=== PATIENT | male | born 1930 | race Caucasian/White ===

== ENCOUNTER 2022-10-01 19:32 | Inpatient (IN) ==
[2022-10-01] MEDS ORDERED: HYDROmorphone 1 MG/ML SYRINGE IV PRN (23:09)
[2022-10-01] MEDS ORDERED: oxyCODONE/APAP 5/325MG TABLET PO PRN (23:09)
[2022-10-01] MEDS ORDERED: TEMAZEPAM 15 MG CAPSULE PO PRN (23:14)
[2022-10-01] MEDS ORDERED: ONDANSETRON 4 MG/2 ML VIAL IV PRN (23:14)
[2022-10-01] MEDS ORDERED: METHOCARBAMOL 1,000 MG/10 ML VIAL IV PRN (23:14)
[2022-10-01] MEDS ORDERED: LACTATED RINGERS 1,000 ML IV SCH (23:15)
[2022-10-01] MEDS ORDERED: ceFAZolin 2 GM in DEXTROSE 5% IN WATER 50 ML IV SCH (23:15)
[2022-10-02 04:40] LABS: Appearance,Urine CLEAR (Clear); Bacteria,Urine MOD /hpf (0); Bilirubin,Urine NEGATIVE (Negative); Color,Urine LT. YELLOW; Culture Indicated,Urine yes; Glucose,Urine (UA) NEGATIVE (Negative); Ketones,Urine TRACE mg/dL (Negative); Leukocyte Esterase,Urine LARGE /uL (Negative); Mucus,Urine FEW /hpf; Nitrate,Urine Positive (Negative); Protein,Urine TRACE mg/dL (Negative); Urine Blood TRACE-INTACT ery/mcL (Negative); Urine RBC 2 /hpf (0-3); Urine Squamous Epithelial Cell < 1 /hpf (0-4); Urine WBC > 182 /hpf (0-4); Urobilinogen,Urine Normal
[2022-10-02] MEDS ORDERED: IPRATROPIUM/ALBUTEROL 3 ML AMPUL.NEB NEB PRN ×2 (06:00→22:21)
[2022-10-02] MEDS ORDERED: SCOPOLAMINE 1 PATCH PATCH TOPICAL PRN (06:00)
[2022-10-02 07:17] LABS: Basophils # (Auto) 0.01 K/mcL (0.00-0.30); Basophils % (Auto) 0.3 % (0.0-2.0); Eosinophils # (Auto) 0.04 K/mcL (0.00-0.70); Eosinophils % (Auto) 1.1 % (0.0-7.0); Hematocrit 22.9 % (40.1-51.0); Hemoglobin 7.5 g/dL (13.7-17.5); Lymphocytes # (Auto) 0.42 K/mcL (1.50-4.80); Lymphocytes % (Auto) 11.7 % (15.5-49.0); Mean Cell Volume 86.7 fL (80.0-100.0); Mean Corpuscular HGB Conc 32.8 g/dL (31.0-36.0); Mean Platelet Volume 10.3 fL (8.8-12.5); Monocytes # (Auto) 0.39 K/mcL (0.10-0.90); Monocytes % (Auto) 10.9 % (1.0-12.0); Neutrophils % (Auto) 75.2 % (38.0-78.0); Platelet Count 210 K/mcL (140-440); RBC 2.64 M/mcL (4.63-6.08); Red Cell Distribution Width 15.1 % (11.5-14.5); WBC 3.6 K/mcL (4.5-11.0)
[2022-10-02 07:34] LABS: INR 1.2 (0.9-1.1); Partial Thromboplastin Time 32.9 sec (20.0-37.0); Prothrombin Time 15.6 sec (11.9-14.5)
--- NOTE | 2022-10-02 07:55 | Consultation ---
DATE OF CONSULTATION: 10/01/2022 DATE OF CONSULTATION: 10/01/2022 CHIEF COMPLAINT: Left hip fracture. HISTORY OF PRESENT ILLNESS: An 89-year-old with history of a left hip fracture, transferred from [facility] where he had a same level fall, had immediate pain, swelling, and deformity. X-rays confirmed an intertrochanteric hip fracture. He is independently living with his at home. PAST MEDICAL HISTORY: Otherwise, fairly healthy. ALLERGIES: None. MEDICATIONS: His medication lists no regular medications. SOCIAL HISTORY: Lives with his at home. PHYSICAL EXAMINATION: VITAL SIGNS: 5'8", 132 pounds, blood pressure 139/60, pulse 73, respiratory rate 16, temperature 97.5, oxygen saturation on room air 100%. GENERAL: He is thin and frail. LUNGS: Clear to auscultation. CARDIOVASCULAR: Slightly tachycardic at 90, regular rate and rhythm. EXTREMITIES: His left leg is shortened and externally rotated. He can move his toes. He does not have substantial pain, rating his pain about 6/10. IMAGING: X-rays of the left hip from [facility] demonstrate an intertrochanteric hip fracture, displaced. IMPRESSION: Intertrochanteric hip fracture. PLAN: Treatment will be open reduction and internal fixation with a gamma nail. This will be scheduled for tomorrow. Tonight, he can drink apple juice or clear fluids. As of 8 o'clock in the morning, he will be made complete n.p.o., but no food or solid foods from now until surgery. RBH:corinne Job ID: [id number] Doc ID: [id number] Peña Barragan MD
[2022-10-02 08:02] LABS: ALT/SGPT 7 U/L (<40); AST/SGOT 14 U/L (<40); Albumin 2.6 gm/dL (3.2-5.2); Albumin/Globulin Ratio 0.9 (1.0-2.3); Alkaline Phosphatase 77 U/L (39-117); Bilirubin,Total 0.4 mg/dL (0.1-1.0); Blood Urea Nitrogen 29 mg/dL (8-23); Calcium 7.7 mg/dL (8.6-10.4); Carbon Dioxide 18 mmol/L (22-30); Chloride 101 mmol/L (96-108); Globulin 2.8 gm/dL (2.2-3.7); Glomerular Filtration Rate 48; Glucose 98 mg/dL (70-105)
[2022-10-02] MEDS: DOCUSATE SODIUM 100 MG CAPSULE PO SCH (08:14)
--- NOTE | 2022-10-02 10:44 | EKG ---
[facility] Test Date: 2022-10-02 Pat Name: SHARLA Ireland Department: MED[facility] Room: 114 Gender: Male Custody Assistant: : [id number] Requested By: Lb Ruvalcaba Order Number: [id number] Reading MD: Lynn Ruby D.O. Measurements Intervals [place] Rate: 79 P: 93 AL: 164 QRS: 43 QRSD: 77 T: 63 QT: 382 QTc: 439 Interpretive Statements Sinus rhythm Electronically Signed On 10-02-2022 10:44:02 PST by Lynn Ruby D.O. /store/M0/[id number]
[2022-10-02] MEDS ORDERED: 0.9 % SODIUM CHLORIDE 250 ML IV SCH ×2 (14:30→16:11)
--- NOTE | 2022-10-02 16:13 | Internal Medicine Consult Note ---
HPI Date of Consult Consult Date: 10/02/22 Primary Care Provider: Mi Donovan Consult Narrative Patient Information: Note initiated : 10/02/22 at 4:03 pm Service Date, if different from initiated Date: [] Patient: Pola Ireland 89 y/o M admitted on 10/01/22 for Left Femur Fracure . Chief Complaint: [] Reason for consult: Hyponatremia cc:: CC: Peña Barragan Patient presents to [facility] after a fall onto his left hip resulting immediate pain. Patient was walking to the mailbox late morning when he slipped on ice. Patient initially brought back in a home with by friends but over period of time he still was unable to get up at that time presented to the ED. patient denies any recent illnesses. Only known medical history is BPH. He does straight cath himself with his 3-4 times a day. His urine was also concerning for dehydration as well as urinary tract infection with nitrites leukocyte esterase and WBCs. He also had ketone positive. No labs were done at the outside facility, but the labs this morning showed a hemoglobin of 7.5, which I suspect is chronic given his age with probably a component of bleeding at the site of fracture and no other obvious source of active bleeding. Additionally his chemistry showed a sodium 127 which is probably has some chronic component, unknown baseline. Mild metabolic acidosis. With elevated BUN to creatinine ratio, 29/1.3 probably from dehydration, unknown baseline corrected calcium was within normal limits. Review of Systems: Pertinent positives as above. Denies headache/fever/chills/nausea/vomiting/chest or abdominal pain/cough/dyspnea/diarrhea. Remaining 10 point review of system reviewed negative PFSH PFSH Social History smoking status: Former smoker MEDS/ALLERGIES Home Medications and Allergies Home Medications Medication Instructions Recorded Confirmed Type No Known Home Meds 10/01/22 10/01/22 History Allergies Allergy/AdvReac Type Severity Reaction Status Date / Time No Known Allergies Allergy Verified 10/01/22 20:56 EXAM Constitutional Vitals: Temp Pulse Resp BP Pulse Ox O2 Del Method 97.9 F 82 16 110/53 100 10/02/22 11:40 10/02/22 11:40 10/02/22 11:40 10/02/22 11:40 10/02/22 11:40 10/02/22 11:40 Exam: General: Alert, Awake, No acute Distress Eyes/N/T: EOMI, PERRL, dry MM Head/Neck: neck supple, normocephalic atraumatic CV: RRR, No murmurs, normal s1/s2 Pulm: Clear b/l, no wheezing/rhonchi/rales Abd: soft, nontender, +BS x4 Ext: no clubbing/cyanosis/edema Neuro: Alert, no focal deficits, moves all extremities, sensations intact b/l upper/lower Skin: warm/dry DATA Data Completed and Pending Labs: Labs from last 24 hours 10/02/22 10/02/22 10/02/22 06:25 06:25 06:25 WBC 3.6 L RBC 2.64 L Hgb 7.5 L Hct 22.9 L MCV 86.7 MCH 28.4 MCHC 32.8 RDW 15.1 H Plt Count 210 MPV 10.3 Immature Gran % (Auto) 0.8 H Neut % (Auto) 75.2 Lymph % (Auto) 11.7 L [place] % (Auto) 10.9 Eos % (Auto) 1.1 Baso % (Auto) 0.3 Lymph # (Auto) 0.42 L [place] # (Auto) 0.39 Eos # (Auto) 0.04 Baso # (Auto) 0.01 Immature Gran # 0.03 Absolute Neutrophils 2.69 PT 15.6 H INR 1.2 H APTT 32.9 Sodium 127 L Potassium 3.8 Chloride 101 Carbon Dioxide 18 L Anion Gap 8.0 BUN 29 H Creatinine 1.3 H GFR Calculation 48 Glucose 98 Calcium 7.7 L Total Bilirubin 0.4 AST 14 ALT 7 Alkaline Phosphatase 77 Total Protein 5.4 L Albumin 2.6 L Globulin 2.8 Albumin/Globulin Ratio 0.9 L Urine Color Urine Appearance Urine pH Ur Specific [place] Urine Protein Urine Glucose (UA) Urine Ketones Urine Occult Blood Urine Nitrate Urine Bilirubin Urine Urobilinogen Ur Leukocyte Esterase Urine RBC Urine WBC Ur Squamous Epith Cells Urine Bacteria Urine Mucus Ur Culture Indicated? 10/02/22 03:47 WBC RBC Hgb Hct MCV MCH MCHC RDW Plt Count MPV Immature Gran % (Auto) Neut % (Auto) Lymph % (Auto) [place] % (Auto) Eos % (Auto) Baso % (Auto) Lymph # (Auto) [place] # (Auto) Eos # (Auto) Baso # (Auto) Immature Gran # Absolute Neutrophils PT INR APTT Sodium Potassium Chloride Carbon Dioxide Anion Gap BUN Creatinine GFR Calculation Glucose Calcium Total Bilirubin AST ALT Alkaline Phosphatase Total Protein Albumin Globulin Albumin/Globulin Ratio Urine Color Lt. yellow Urine Appearance Clear Urine pH 6.0 Ur Specific [place] 1.010 Urine Protein Trace A Urine Glucose (UA) Negative Urine Ketones Trace A Urine Occult Blood Trace-intact A Urine Nitrate Positive A Urine Bilirubin Negative Urine Urobilinogen Normal Ur Leukocyte Esterase Large A Urine RBC 2 Urine WBC > 182 H Ur Squamous Epith Cells < 1 Urine Bacteria Mod A Urine Mucus Few A Ur Culture Indicated? yes A/P Narrative A/P Narrative: A: *Left hip fracture: *Anemia, likely chronic with acute component from fracture: *Hyponatremia: Likely chronic unknown baseline with possible acute component from volume depletion - *Corrected calcium wnl *KATHY on likely CKD: 2/2 volume depletion *Metabolic acidosis: 2/2 above *Volume depletion: *UTI: *h/o BPH with UR: pt straight caths 3-4x's day at home *Protein calorie malnutrition: Fat and muscle loss P: -Dr. Bai for orthopedic surgery -IVF's -follow-up renal function, uop, i/o -Hyponatremia work-up, follow-up sodium after NS IVF pending urine studies -check tsh/cortisol -Pain control - -Rocephin pending UC -Dietary consult -PT/OT -CM for placement -ppx: SCD and postop per Ortho Time Spent With Patient Time: Total time spent is greater than 50% in coordination of care (as documented) at patient's floor/unit and/or counseling patient: Total time spent with greater than 50% in coordination of care (as documented) at patient's floor/unit and/or counseling patient:: Greater than 70 minutes
[2022-10-02] MEDS: 0.9 % SODIUM CHLORIDE 1,000 ML IV SCH (17:09)
[2022-10-02] MEDS: cefTRIAXone 1 GM VIAL IV SCH (17:09)
[2022-10-02 18:12] LABS: Thyroid Stimulating Hormone 4.31 uIU/mL (0.27-5.01)
[2022-10-02] MEDS ORDERED: TEMAZEPAM 15 MG CAPSULE PO PRN (20:26)
[2022-10-02] MEDS ORDERED: TRANEXAMIC ACID 1,000 MG/10 ML VIAL IV ONE (20:26)
[2022-10-02] MEDS ORDERED: ONDANSETRON 4 MG/2 ML VIAL IV PRN (20:26)
[2022-10-02] MEDS ORDERED: ACETAMINOPHEN 325 MG TABLET PO PRN (20:26)
[2022-10-02] MEDS ORDERED: MAGNESIUM HYDROXIDE 30 ML ORAL.SUSP PO PRN (20:26)
[2022-10-02] MEDS ORDERED: HYDROmorphone 1 MG/ML SYRINGE IV PRN (20:26)
--- NOTE | 2022-10-02 20:26 | Brief Operative Note ---
Brief Operative Note Date of procedure: 10/02/22 Pre-op diagnosis: Left hip fx Post-op diagnosis: same Procedure: Left hip fx im nailing Grafts/Implants: Yes Anesthesia: GETA Findings: Intertrochanteric fx Complications: none Surgeon: Peña Barragan Pier Runner: López Garrido Estimated blood loss (cc): 58 Specimens Removed/Pathology: none sent Condition: stable Disposition: PACU
[2022-10-02] MEDS ORDERED: ceFAZolin 2 GM in DEXTROSE 5% IN WATER 50 ML IV SCH (20:30)
[2022-10-02] MEDS ORDERED: ceFAZolin 1 GM VIAL ONE (20:34)
[2022-10-02] MEDS ORDERED: DOCUSATE SODIUM 100 MG CAPSULE PO SCH (21:00)
[2022-10-02] MEDS ORDERED: fentaNYL 100 MCG/2 ML VIAL IV ONE (21:30)
[2022-10-02] MEDS ORDERED: LIDOCAINE HCL/PF 100 MG/5 ML SYRINGE IV ONE (21:30)
[2022-10-02] MEDS ORDERED: PROPOFOL 200 MG/20 ML VIAL IV ONE (21:30)
[2022-10-02] MEDS ORDERED: ROCURONIUM 10 MG/ML ML IV ONE (21:30)
[2022-10-02] MEDS ORDERED: CALCIUM CHLORIDE 1,000 MG/10 ML VIAL ONE (21:30)
[2022-10-02] MEDS ORDERED: MAGNESIUM SULFATE 2 GM/50 ML BAG IV ONE (21:30)
[2022-10-02] MEDS ORDERED: SUGAMMADEX SODIUM 200 MG/2 ML VIAL IV ONE (21:30)
[2022-10-02] MEDS ORDERED: METHOCARBAMOL 1,000 MG/10 ML VIAL IV PRN (22:21)
[2022-10-02] MEDS ORDERED: ACETAMINOPHEN 1,000 MG/100 ML BAG IV ONE ×2 (22:21→22:46)
[2022-10-02] MEDS ORDERED: NALOXONE HCL 0.4 MG/ML VIAL IV PRN (22:21)
[2022-10-02] MEDS ORDERED: fentaNYL 100 MCG/2 ML VIAL IV PRN (22:21)
[2022-10-02] MEDS ORDERED: LACTATED RINGERS 1,000 ML IV SCH (22:30)
[2022-10-02] MEDS: 0.9 % SODIUM CHLORIDE 10 ML SYRINGE IV SCH (23:22)
[2022-10-03] MEDS: SODIUM CHLORIDE 1 GM TABLET PO SCH ×3 (00:33→21:41)
[2022-10-03] MEDS: ASPIRIN 81 MG TAB.CHEW CHEWED SCH ×3 (00:33→21:41)
[2022-10-03] MEDS: SENNOSIDES 1 TABLET PO SCH ×2 (00:33→21:41)
[2022-10-03] MEDS: DOCUSATE SODIUM 100 MG CAPSULE PO SCH ×3 (00:33→21:41)
--- NOTE | 2022-10-03 02:47 | XRay Report ---
CLINICAL INFORMATION: ORIF intertrochanteric fracture COMPARISON: None. FINDINGS: Oblique intertrochanteric fracture has been reduced to anatomic alignment and transfixed by gamma nail. Both SI joints are normal in width and alignment arthritic change. Soft tissue swelling over the surgical site. IMPRESSION: ORIF left intertrochanteric fracture-anatomic alignment Interpreted and Authenticated by: Tod Wilcox 10/03/22
--- NOTE | 2022-10-03 04:23 | XRay Report ---
CLINICAL INFORMATION: Intertrochanteric fracture COMPARISON: None. FINDINGS: Two digital images from the OR show intertrochanteric fracture reduced to anatomic alignment and transfixed by gamma nail. Total fluoroscopy time 0.7 minutes. IMPRESSION: ORIF intertrochanteric fracture anatomic alignment. Interpreted and Authenticated by: Tod Wilcox 10/03/22
[2022-10-03] MEDS: ceFAZolin 1 GM VIAL IV SCH ×2 (05:15→13:24)
[2022-10-03] MEDS: 0.9 % SODIUM CHLORIDE 10 ML SYRINGE IV SCH ×3 (05:18→21:49)
[2022-10-03 06:46] LABS: Basophils # (Auto) 0.01 K/mcL (0.00-0.30); Basophils % (Auto) 0.2 % (0.0-2.0); Eosinophils # (Auto) 0.02 K/mcL (0.00-0.70); Eosinophils % (Auto) 0.4 % (0.0-7.0); Hematocrit 28.6 % (40.1-51.0); Hemoglobin 9.6 g/dL (13.7-17.5); Lymphocytes # (Auto) 0.43 K/mcL (1.50-4.80); Lymphocytes % (Auto) 8.6 % (15.5-49.0); Mean Cell Volume 85.4 fL (80.0-100.0); Mean Corpuscular HGB Conc 33.6 g/dL (31.0-36.0); Mean Platelet Volume 10.2 fL (8.8-12.5); Monocytes # (Auto) 0.45 K/mcL (0.10-0.90); Neutrophils % (Auto) 81.2 % (38.0-78.0); Platelet Count 185 K/mcL (140-440); RBC 3.35 M/mcL (4.63-6.08); Red Cell Distribution Width 14.6 % (11.5-14.5)
--- NOTE | 2022-10-03 07:40 | Internal Med Progress Note ---
SUBJECTIVE Subjective Patient information: Note initiated : 10/03/22 at 7:37 am Service Date, if different from initiated Date: [] Patient: Pola Ireland 89 y/o M admitted on 10/01/22 for Left Femur Fracure . Chief Complaint: [] Interval history: HPI: Patient presents to [facility] after a fall onto his left hip resulting immediate pain. Patient was walking to the mailbox late morning when he slipped on ice. Patient initially brought back in a home with by friends but over period of time he still was unable to get up at that time presented to the ED. patient denies any recent illnesses. Only known medical history is BPH. He does straight cath himself with his 3-4 times a day. His urine was also concerning for dehydration as well as urinary tract infection with nitrites leukocyte esterase and WBCs. He also had ketone positive. No labs were done at the outside facility, but the labs this morning showed a hemoglobin of 7.5, which I suspect is chronic given his age with probably a component of bleeding at the site of fracture and no other obvious source of active bleeding. Additionally his chemistry showed a sodium 127 which is probably has some chronic component, unknown baseline. Mild metabolic acidosis. With elevated BUN to creatinine ratio, 29/1.3 probably from dehydration, unknown baseline corrected calcium was within normal limits. 1/5 Patient feeling bit better today after surgery. Patient was on oxygen overnight but is on room air this morning. Anemia improved after blood transfusion. Pe nding urine culture. Sodium low but improving. Acidosis noted. Creatinine 1.5. We will continue IV fluid. Review of Systems: denies headache/fever/chills/nausea/vomiting/chest or abdominal pain/c ough/dyspnea/diarrhea. Otherwise see above. Constitutional Vitals: Vital Signs Temp Pulse Resp BP Pulse Ox O2 Del Method O2 Flow Rate 97.6 F 73 16 132/60 96 2 10/03/22 03:00 10/03/22 04:00 10/03/22 03:00 10/03/22 03:00 10/03/22 05:47 10/03/22 05:47 10/03/22 03:00 Period Temp Pulse Resp BP Sys/Casanova Pulse Ox O2 Del Method O2 Flow Rate Last 24 Hr 97.0 F-98.1 F 53-88 12-21 101-147/50-116 93-100 Nasal Cannula- Room Air 1-100 Intake and Output 10/02/22 10/03/22 10/03/22 19:59 03:59 11:59 Intake Total 431 1406 480 Output Total 1400 250 200 Balance -969 1156 280 Weight 61.235 kg Intake & Output: Intake & Output 10/02/22 10/03/22 10/03/22 19:59 03:59 11:59 Intake Total 431 1406 480 Output Total 1400 250 200 Balance -969 1156 280 Weight 61.235 kg Intake: IV 431 365 Sodium Chloride 0.9% 1,000 ml @ 31 265 75 mls/hr IV .[id number] [facility] Rx#: [id number] Lactated Ringers 1,000 ml @ 20 400 mls/hr IV .Q24H [facility] Rx#: [id number] Oral 480 Blood Product 641 IV - Manual Only 400 Output: Urine Catheter Amount 1400 250 200 Other: Urine Appearance Cloudy Cloudy Clear Uretheral (Pete) Clear Urine Color Pale Pale Yellow Uretheral (Pete) Yellow Exam: General: Alert, Awake, No acute Distress Eyes/N/T: EOMI, Head/Neck: neck supple, CV: RRR, No murmurs, Pulm: Clear b/l, no wheezing/rhonchi/rales Abd: soft, nontender, +BS x4 Ext: no clubbing/cyanosis/edema Neuro: Alert, no focal deficits, moves all extremities, Skin: warm/dry OBJ DATA Labs CBC & Chem 7: 10/03/22 05:52 10/03/22 05:52 Labs: Abnormal Lab Results 10/03/22 10/03/22 10/02/22 05:52 05:51 16:42 WBC RBC 3.35 L Hgb 9.6 L Hct 28.6 L 29.5 L RDW 14.6 H Immature Gran % (Auto) 0.6 H Neut % (Auto) 81.2 H Lymph % (Auto) 8.6 L Lymph # (Auto) 0.43 L PT INR Sodium Carbon Dioxide BUN Creatinine Osmolality 275 L Calcium Total Protein Albumin Albumin/Globulin Ratio Urine Protein Urine Ketones Urine Occult Blood Urine Nitrate Ur Leukocyte Esterase Urine WBC Urine Bacteria Urine Mucus 10/02/22 10/02/22 10/02/22 06:25 06:25 06:25 WBC 3.6 L RBC 2.64 L Hgb 7.5 L Hct 22.9 L RDW 15.1 H Immature Gran % (Auto) 0.8 H Neut % (Auto) Lymph % (Auto) 11.7 L Lymph # (Auto) 0.42 L PT 15.6 H INR 1.2 H Sodium 127 L Carbon Dioxide 18 L BUN 29 H Creatinine 1.3 H Osmolality Calcium 7.7 L Total Protein 5.4 L Albumin 2.6 L Albumin/Globulin Ratio 0.9 L Urine Protein Urine Ketones Urine Occult Blood Urine Nitrate Ur Leukocyte Esterase Urine WBC Urine Bacteria Urine Mucus 10/02/22 03:47 WBC RBC Hgb Hct RDW Immature Gran % (Auto) Neut % (Auto) Lymph % (Auto) Lymph # (Auto) PT INR Sodium Carbon Dioxide BUN Creatinine Osmolality Calcium Total Protein Albumin Albumin/Globulin Ratio Urine Protein Trace A Urine Ketones Trace A Urine Occult Blood Trace-intact A Urine Nitrate Positive A Ur Leukocyte Esterase Large A Urine WBC > 182 H Urine Bacteria Mod A Urine Mucus Few A Meds: Medications Acetaminophen (Acetaminophen 325 Mg Tablet) 650 mg PO Q6HP PRN; Protocol PRN Reason: Per Pain Protocol/Fever > 101 Aspirin (Aspirin 81 Mg Tab.Chew) 81 mg CHEWED BID [facility] Last Admin: 10/03/22 00:33 Dose: Not Given Cefazolin Sodium (Cefazolin 1 Gm Vial) 2 gm IV Q8H [facility]; Protocol Stop: 10/03/22 13:01 Last Admin: 10/03/22 05:15 Dose: 2 gm Ceftriaxone Sodium (Ceftriaxone 1 Gm Vial) 1 gm IV Q24H [facility]; Protocol Last Admin: 10/02/22 17:09 Dose: 1 gm Docusate Sodium (Docusate Sodium 100 Mg Capsule) 100 mg PO BID [facility] Last Admin: 10/03/22 00:33 Dose: Not Given Hydromorphone HCl (Hydromorphone 1 Mg/Ml Syringe) 0 mg IV Q2HP PRN; Protocol PRN Reason: Per Pain Protocol Sodium Chloride (Sodium Chloride 0.9%) 1,000 mls @ 75 mls/hr IV .[id number] [facility] Last Infusion: 10/03/22 03:12 Dose: Infused Magnesium Hydroxide (Magnesium Hydroxide 30 Ml Oral.Susp) 30 ml PO BIDP PRN PRN Reason: Constipation Ondansetron HCl (Ondansetron 4 Mg/2 Ml Vial) 4 mg IV Q4HP PRN; Protocol PRN Reason: Nausea/Vomiting Oxycodone/Acetaminophen (Oxycodone/Apap 5/325mg Tablet) 1 tab PO Q4HP PRN; Protocol PRN Reason: Per Pain Protocol Senna (Sennosides 1 Tablet) 2 tab PO HS [facility] Last Admin: 10/03/22 00:33 Dose: Not Given Sodium Chloride (Sodium Chloride 1 Gm Tablet) 2 gm PO BID [facility] Last Admin: 10/03/22 00:33 Dose: Not Given Sodium Chloride (0.9 % Sodium Chloride 10 Ml Syringe) 10 ml IV Q8 [facility] Last Admin: 10/03/22 05:18 Dose: 10 ml Temazepam (Temazepam 15 Mg Capsule) 15 mg PO HSP PRN PRN Reason: Insomnia A/P Narrative A/P Narrative: A: *Left hip fracture: *Anemia, likely chronic with acute component from fracture: -responded appropriately to 2prbc(10/02) *Hyponatremia: Likely chronic unknown baseline with possible acute component from volume depletion -tsh/cortisol wnl *Corrected calcium wnl *KATHY on likely CKD III (unknown baseline): 2/2 volume depletion *Metabolic acidosis: 2/2 above *Volume depletion: *UTI: *h/o BPH with UR: pt straight caths 3-4x's day at home *Protein calorie malnutrition: Fat and muscle loss P: -Dr. Bai for orthopedic surgery -IVF's -follow-up renal function, uop, i/o -f/u acid-base -Hyponatremia work-up, follow-up sodium -Pain control -Rocephin pending -Dietary consult -PT/OT -CM for placement -ppx: SCD and postop per Ortho Time Spent With Patient Time: Total time spent is greater than 50% in coordination of care (as documented) at patient's floor/unit and/or counseling patient: Total time spent with greater than 50% in coordination of care (as documented) at patient's floor/unit and/or counseling patient:: 35 - 50 minutes
[2022-10-03 08:28] LABS: ALT/SGPT 9 U/L (<40); AST/SGOT 19 U/L (<40); Albumin 2.7 gm/dL (3.2-5.2); Alkaline Phosphatase 73 U/L (39-117); Bilirubin,Direct < 0.2 mg/dL (0-0.3); Bilirubin,Total 0.5 mg/dL (0.1-1.0); Blood Urea Nitrogen 30 mg/dL (8-23); Calcium 7.8 mg/dL (8.6-10.4); Carbon Dioxide 17 mmol/L (22-30); Chloride 103 mmol/L (96-108); Globulin 2.8 gm/dL (2.2-3.7); Glomerular Filtration Rate 40; Glucose 99 mg/dL (70-105); Lactate Dehydrogenase 160 U/L (135-225); Triglycerides 51 mg/dL (<150); Uric Acid 5.2 mg/dL (2.5-8.0)
[2022-10-03] MEDS: SODIUM BICARBONATE 650 MG TABLET PO SCH ×3 (09:15→21:41)
[2022-10-03] MEDS: cefTRIAXone 1 GM VIAL IV SCH (09:45)
--- NOTE | 2022-10-03 10:50 | Operative Note ---
DATE OF OPERATION: 10/02/2022 DATE OF PROCEDURE: 10/02/2022 PREOPERATIVE DIAGNOSIS: Left intertrochanteric 3-part fracture. POSTOPERATIVE DIAGNOSIS: Left intertrochanteric 3-part fracture. PROCEDURE: Left intertrochanteric 3-part fracture open reduction and internal fixation with a gamma nail. SURGEON: Peña Barragan M.D. INSIDE SALES ACCOUNT EXECUTIVE: Jimmy Boss PA-C. The expertise and technical skill of this provider were required throughout the case. The PA assisted with preoperative coordination, intraoperative retraction, wound closure, and dressing and splint application, as well as postoperative documentation and care coordination. ANESTHESIA: General LMA anesthesia. COMPLICATIONS: None. ESTIMATED BLOOD LOSS: About 58 mL. IMPLANTS: 125-degree short gamma nail with a 95 mm dynamic compression screw and a 37.5 distal locking screw in the dynamic hole. DISPOSITION: PACU. DESCRIPTION OF PROCEDURE: The patient was brought to the operating room, put to sleep, supine on the [place] table. Using image, we reduced the hip fracture. Being sterilely prepped and draped, we then placed Ioban over the skin, made an incision in line with the superior iliac spine, posterior aspect of the greater trochanter. Once done, we made an incision through the fascial layer and identified the greater trochanter, placed a second incision slightly distal for a bone hook to help reduce the fracture. Once this was reduced and held, we then placed the pin through the greater trochanter centrally into the canal. Once done, we were able to place a 125-degree gamma nail, at 125 degrees of inclination. This was placed centrally in the humeral head. A 95 screw was measured and put into place and compression applied. We locked the screw proximally, impacted the fracture site while holding reduction and locked distally in the dynamic compression screw hole to allow for slight compression. Once done, we irrigated thoroughly, took pictures, AP and lateral, had excellent alignment. It did involve all 3 parts with the lesser troch, greater troch, femoral head and sub troch. The patient tolerated this well. Good purchase of all components. We then closed the layers with 2-0 Vicryl and then cristhian. Sterile bandage was applied. The patient tolerated this well. Blood loss about 56 mL. [facility]:corinne Job ID: [id number] Doc ID: [id number] Peña Barragan MD
--- NOTE | 2022-10-03 20:43 | Orthopedic Progress Note ---
SUBJECTIVE Subjective Patient information: Note initiated : 10/03/22 at 8:38 pm Service Date, if different from initiated Date: [] Patient: Pola Ireland 89 y/o M admitted on 10/01/22 for Left Femur Fracure . Chief Complaint: [minimal pain and eating] Principal diagnosis: left femur fx Constitutional Vitals: Vital Signs Temp Pulse Resp BP Pulse Ox O2 Del Method O2 Flow Rate 97.9 F 89 16 102/58 100 2 10/03/22 20:15 10/03/22 20:15 10/03/22 20:15 10/03/22 20:15 10/03/22 20:18 10/03/22 20:18 10/03/22 03:00 Period Temp Pulse Resp BP Sys/Casanova Pulse Ox O2 Del Method O2 Flow Rate Last 24 Hr 97.0 F-98.6 F 53-89 12-21 93-147/51-116 93-100 Nasal Cannula- Room Air 1-100 Intake and Output 10/03/22 10/03/22 10/04/22 11:59 19:59 03:59 Intake Total 480 120 Output Total 200 450 Balance 280 -330 Weight 135 lb 146 lb Patient Weight 10/04/22 03:59 Weight 146 lb Intake & Output: Intake & Output 10/03/22 10/03/22 10/04/22 11:59 19:59 03:59 Intake Total 480 120 Output Total 200 450 Balance 280 -330 Weight 135 lb 146 lb Intake: Oral 480 120 Output: Urine Catheter Amount 200 450 Other: Urine Appearance Clear Cloudy Uretheral (Pete) Clear Urine Color Yellow Yellow Uretheral (Pete) Light [place] Urine Odor Normal Extremities Exam Extremities exam: Present normal capillary refill and neurovascular intact OBJ DATA Labs CBC & Chem 7: 10/03/22 05:52 10/03/22 05:52 Labs: Abnormal Lab Results 10/03/22 10/03/22 10/03/22 05:52 05:52 05:51 WBC RBC 3.35 L Hgb 9.6 L Hct 28.6 L 29.5 L RDW 14.6 H Immature Gran % (Auto) 0.6 H Neut % (Auto) 81.2 H Lymph % (Auto) 8.6 L Lymph # (Auto) 0.43 L PT INR Sodium 131 L Carbon Dioxide 17 L BUN 30 H Creatinine 1.5 H Osmolality Calcium 7.8 L Total Protein 5.5 L Albumin 2.7 L Albumin/Globulin Ratio Urine Protein Urine Ketones Urine Occult Blood Urine Nitrate Ur Leukocyte Esterase Urine WBC Urine Bacteria Urine Mucus 10/02/22 10/02/22 10/02/22 16:42 06:25 06:25 WBC RBC Hgb Hct RDW Immature Gran % (Auto) Neut % (Auto) Lymph % (Auto) Lymph # (Auto) PT 15.6 H INR 1.2 H Sodium 127 L Carbon Dioxide 18 L BUN 29 H Creatinine 1.3 H Osmolality 275 L Calcium 7.7 L Total Protein 5.4 L Albumin 2.6 L Albumin/Globulin Ratio 0.9 L Urine Protein Urine Ketones Urine Occult Blood Urine Nitrate Ur Leukocyte Esterase Urine WBC Urine Bacteria Urine Mucus 10/02/22 10/02/22 06:25 03:47 WBC 3.6 L RBC 2.64 L Hgb 7.5 L Hct 22.9 L RDW 15.1 H Immature Gran % (Auto) 0.8 H Neut % (Auto) Lymph % (Auto) 11.7 L Lymph # (Auto) 0.42 L PT INR Sodium Carbon Dioxide BUN Creatinine Osmolality Calcium Total Protein Albumin Albumin/Globulin Ratio Urine Protein Trace A Urine Ketones Trace A Urine Occult Blood Trace-intact A Urine Nitrate Positive A Ur Leukocyte Esterase Large A Urine WBC > 182 H Urine Bacteria Mod A Urine Mucus Few A Meds: Medications Acetaminophen (Acetaminophen 325 Mg Tablet) 650 mg PO Q6HP PRN; Protocol PRN Reason: Per Pain Protocol/Fever > 101 Aspirin (Aspirin 81 Mg Tab.Chew) 81 mg CHEWED BID [facility] Last Admin: 10/03/22 09:16 Dose: 81 mg Ceftriaxone Sodium (Ceftriaxone 1 Gm Vial) 1 gm IV Q24H [facility]; Protocol Last Admin: 10/03/22 09:45 Dose: 1 gm Docusate Sodium (Docusate Sodium 100 Mg Capsule) 100 mg PO BID [facility] Last Admin: 10/03/22 09:16 Dose: 100 mg Hydromorphone HCl (Hydromorphone 1 Mg/Ml Syringe) 0 mg IV Q2HP PRN; Protocol PRN Reason: Per Pain Protocol Sodium Chloride (Sodium Chloride 0.9%) 1,000 mls @ 75 mls/hr IV .[id number] [facility] Last Infusion: 10/03/22 03:12 Dose: Infused Magnesium Hydroxide (Magnesium Hydroxide 30 Ml Oral.Susp) 30 ml PO BIDP PRN PRN Reason: Constipation Ondansetron HCl (Ondansetron 4 Mg/2 Ml Vial) 4 mg IV Q4HP PRN; Protocol PRN Reason: Nausea/Vomiting Oxycodone/Acetaminophen (Oxycodone/Apap 5/325mg Tablet) 1 tab PO Q4HP PRN; Protocol PRN Reason: Per Pain Protocol Senna (Sennosides 1 Tablet) 2 tab PO HS [facility] Last Admin: 10/03/22 00:33 Dose: Not Given Sodium Bicarbonate (Sodium Bicarbonate 650 Mg Tablet) 1,300 mg PO TID [facility] Stop: 10/03/22 21:01 Last Admin: 10/03/22 16:43 Dose: 1,300 mg Sodium Chloride (Sodium Chloride 1 Gm Tablet) 2 gm PO BID [facility] Last Admin: 10/03/22 09:15 Dose: 2 gm Sodium Chloride (0.9 % Sodium Chloride 10 Ml Syringe) 10 ml IV Q8 [facility] Last Admin: 10/03/22 16:43 Dose: 10 ml Temazepam (Temazepam 15 Mg Capsule) 15 mg PO HSP PRN PRN Reason: Insomnia A/P Assessment and plan (1) Closed left hip fracture: Assessment and plan: amb a few steps Plan: dc snf Status: Acute (2) Anemia: Plan: 2 units prbc given f/u with pcp for cause Status: Acute (3) Hyponatremia: Plan: chronic disease hyponatremia f/u pcp Status: Acute Time Spent With Patient Time: Total time spent is greater than 50% in coordination of care (as documented) at patient's floor/unit and/or counseling patient:
--- NOTE | 2022-10-03 20:43 | Orthopedic Progress Note ---
SUBJECTIVE Subjective Patient information: Note initiated : 10/03/22 at 8:43 pm Service Date, if different from initiated Date: [] Patient: Pola Ireland 89 y/o M admitted on 10/01/22 for Left Femur Fracure . Chief Complaint: [] Principal diagnosis: left femur fx Constitutional Vitals: Vital Signs Temp Pulse Resp BP Pulse Ox O2 Del Method O2 Flow Rate 97.9 F 89 16 102/58 100 2 10/03/22 20:15 10/03/22 20:15 10/03/22 20:15 10/03/22 20:15 10/03/22 20:18 10/03/22 20:18 10/03/22 03:00 Period Temp Pulse Resp BP Sys/Casanova Pulse Ox O2 Del Method O2 Flow Rate Last 24 Hr 97.0 F-98.6 F 53-89 12-21 93-147/51-116 93-100 Nasal Cannula- Room Air 1-100 Intake and Output 10/03/22 10/03/22 10/04/22 11:59 19:59 03:59 Intake Total 480 120 480 Output Total 200 450 Balance 280 -330 480 Weight 135 lb 146 lb Patient Weight 10/04/22 03:59 Weight 146 lb Intake & Output: Intake & Output 10/03/22 10/03/22 10/04/22 11:59 19:59 03:59 Intake Total 480 120 480 Output Total 200 450 Balance 280 -330 480 Weight 135 lb 146 lb Intake: Oral 480 120 480 Output: Urine Catheter Amount 200 450 Other: Meal Dinner Percent of Meal Consumed 50% Feeding Ability Assist with Tray Set Up Urine Appearance Clear Cloudy Uretheral (Ptee) Clear Urine Color Yellow Yellow Uretheral (Pete) Light [place] Urine Odor Normal OBJ DATA Labs CBC & Chem 7: 10/03/22 05:52 10/03/22 05:52 Labs: Abnormal Lab Results 10/03/22 10/03/22 10/03/22 05:52 05:52 05:51 WBC RBC 3.35 L Hgb 9.6 L Hct 28.6 L 29.5 L RDW 14.6 H Immature Gran % (Auto) 0.6 H Neut % (Auto) 81.2 H Lymph % (Auto) 8.6 L Lymph # (Auto) 0.43 L PT INR Sodium 131 L Carbon Dioxide 17 L BUN 30 H Creatinine 1.5 H Osmolality Calcium 7.8 L Total Protein 5.5 L Albumin 2.7 L Albumin/Globulin Ratio Urine Protein Urine Ketones Urine Occult Blood Urine Nitrate Ur Leukocyte Esterase Urine WBC Urine Bacteria Urine Mucus 10/02/22 10/02/22 10/02/22 16:42 06:25 06:25 WBC RBC Hgb Hct RDW Immature Gran % (Auto) Neut % (Auto) Lymph % (Auto) Lymph # (Auto) PT 15.6 H INR 1.2 H Sodium 127 L Carbon Dioxide 18 L BUN 29 H Creatinine 1.3 H Osmolality 275 L Calcium 7.7 L Total Protein 5.4 L Albumin 2.6 L Albumin/Globulin Ratio 0.9 L Urine Protein Urine Ketones Urine Occult Blood Urine Nitrate Ur Leukocyte Esterase Urine WBC Urine Bacteria Urine Mucus 10/02/22 10/02/22 06:25 03:47 WBC 3.6 L RBC 2.64 L Hgb 7.5 L Hct 22.9 L RDW 15.1 H Immature Gran % (Auto) 0.8 H Neut % (Auto) Lymph % (Auto) 11.7 L Lymph # (Auto) 0.42 L PT INR Sodium Carbon Dioxide BUN Creatinine Osmolality Calcium Total Protein Albumin Albumin/Globulin Ratio Urine Protein Trace A Urine Ketones Trace A Urine Occult Blood Trace-intact A Urine Nitrate Positive A Ur Leukocyte Esterase Large A Urine WBC > 182 H Urine Bacteria Mod A Urine Mucus Few A Meds: Medications Acetaminophen (Acetaminophen 325 Mg Tablet) 650 mg PO Q6HP PRN; Protocol PRN Reason: Per Pain Protocol/Fever > 101 Aspirin (Aspirin 81 Mg Tab.Chew) 81 mg CHEWED BID [facility] Last Admin: 10/03/22 09:16 Dose: 81 mg Ceftriaxone Sodium (Ceftriaxone 1 Gm Vial) 1 gm IV Q24H [facility]; Protocol Last Admin: 10/03/22 09:45 Dose: 1 gm Docusate Sodium (Docusate Sodium 100 Mg Capsule) 100 mg PO BID [facility] Last Admin: 10/03/22 09:16 Dose: 100 mg Hydromorphone HCl (Hydromorphone 1 Mg/Ml Syringe) 0 mg IV Q2HP PRN; Protocol PRN Reason: Per Pain Protocol Sodium Chloride (Sodium Chloride 0.9%) 1,000 mls @ 75 mls/hr IV .[id number] [facility] Last Infusion: 10/03/22 03:12 Dose: Infused Magnesium Hydroxide (Magnesium Hydroxide 30 Ml Oral.Susp) 30 ml PO BIDP PRN PRN Reason: Constipation Ondansetron HCl (Ondansetron 4 Mg/2 Ml Vial) 4 mg IV Q4HP PRN; Protocol PRN Reason: Nausea/Vomiting Oxycodone/Acetaminophen (Oxycodone/Apap 5/325mg Tablet) 1 tab PO Q4HP PRN; Protocol PRN Reason: Per Pain Protocol Senna (Sennosides 1 Tablet) 2 tab PO HS [facility] Last Admin: 10/03/22 00:33 Dose: Not Given Sodium Bicarbonate (Sodium Bicarbonate 650 Mg Tablet) 1,300 mg PO TID [facility] Stop: 10/03/22 21:01 Last Admin: 10/03/22 16:43 Dose: 1,300 mg Sodium Chloride (Sodium Chloride 1 Gm Tablet) 2 gm PO BID [facility] Last Admin: 10/03/22 09:15 Dose: 2 gm Sodium Chloride (0.9 % Sodium Chloride 10 Ml Syringe) 10 ml IV Q8 [facility] Last Admin: 10/03/22 16:43 Dose: 10 ml Temazepam (Temazepam 15 Mg Capsule) 15 mg PO HSP PRN PRN Reason: Insomnia A/P Time Spent With Patient Time: Total time spent is greater than 50% in coordination of care (as documented) at patient's floor/unit and/or counseling patient:
[2022-10-03] MEDS: 0.9 % SODIUM CHLORIDE 1,000 ML IV SCH (21:59)
--- NOTE | 2022-10-04 00:47 | Internal Med Progress Note ---
SUBJECTIVE Subjective Patient information: Note initiated : 10/04/22 at 12:45 am Service Date, if different from initiated Date: [] Patient: Pola Ireland 89 y/o M admitted on 10/01/22 for Left Femur Fracure . Chief Complaint: [] Principal diagnosis: left femur fx Interval history: HPI: Patient presents to [facility] after a fall onto his left hip resulting immediate pain. Patient was walking to the mailbox late morning when he slipped on ice. Patient initially brought back in a home with by friends but over period of time he still was unable to get up at that time presented to the ED. patient denies any recent illnesses. Only known medical history is BPH. He does straight cath himself with his 3-4 times a day. His urine was also concerning for dehydration as well as urinary tract infection with nitrites leukocyte esterase and WBCs. He also had ketone positive. No labs were done at the outside facility, but the labs this morning showed a hemoglobin of 7.5, which I suspect is chronic given his age with probably a component of bleeding at the site of fracture and no other obvious source of active bleeding. 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 Mild metabolic acidosis. With elevated BUN to creatinine ratio, 29/1.3 probably from dehydration, unknown baseline corrected calcium was within normal limits. 1/5 Patient feeling bit better today after surgery. Patient was on oxygen overnight but is on room air this morning. Anemia improved after blood transfusion. Pending urine culture. Sodium low but improving. Acidosis noted. Creatinine 1.5. We will continue IV fluid. / Sitting in chair eating breakfast. No overnight event or new complaints. Hemoglobin 7.9, no gross bleeding or saturated dressings. Sodium dropped to 126. Initially 127 then 1 31-1 26. Creatinine stable. Review of Systems: denies headache/fever/chills/nausea/vomiting/chest or abdominal pain/cough/dyspnea/diarrhea. Otherwise see above. Constitutional Vitals: Vital Signs Temp Pulse Resp BP Pulse Ox O2 Del Method O2 Flow Rate 97.9 F 89 16 102/58 92 2 10/03/22 20:15 10/03/22 20:15 10/03/22 20:15 10/03/22 20:15 10/03/22 22:00 10/03/22 22:00 10/03/22 03:00 Period Temp Pulse Resp BP Sys/Casanova Pulse Ox O2 Del Method O2 Flow Rate Last 24 Hr 97.3 F-98.6 F 65-89 16-20 93-132/51-64 92-100 Nasal Cannula- Room Air 2-2 Intake and Output 10/03/22 10/03/22 10/04/22 11:59 19:59 03:59 Intake Total 480 120 480 Output Total 200 450 Balance 280 -330 480 Weight 61.235 kg 66.224 kg Patient Weight 10/04/22 03:59 Weight 66.224 kg Intake & Output: Intake & Output 10/03/22 10/03/22 10/04/22 11:59 19:59 03:59 Intake Total 480 120 480 Output Total 200 450 Balance 280 -330 480 Weight 61.235 kg 66.224 kg Intake: Oral 480 120 480 Output: Urine Catheter Amount 200 450 Other: Meal Dinner Percent of Meal Consumed 50% Feeding Ability Assist with Tray Set Up Urine Appearance Clear Cloudy Sediment Uretheral (Pete) Clear Sediment Urine Color Yellow Yellow Uretheral (Pete) Light [place] Urine Odor Normal Exam: General: Alert, Awake, No acute Distress Eyes/N/T: EOMI, Head/Neck: neck supple, CV: RRR, No murmurs, Pulm: Clear b/l, no wheezing/rhonchi/rales Abd: soft, nontender, +BS x4 Ext: no clubbing/cyanosis/edema Neuro: Alert, no focal deficits, moves all extremities, Skin: warm/dry OBJ DATA Labs CBC & Chem 7: 10/04/22 05:50 10/04/22 05:50 Labs: Abnormal Lab Results 10/03/22 10/03/22 10/03/22 05:52 05:52 05:51 WBC RBC 3.35 L Hgb 9.6 L Hct 28.6 L 29.5 L RDW 14.6 H Immature Gran % (Auto) 0.6 H Neut % (Auto) 81.2 H Lymph % (Auto) 8.6 L Lymph # (Auto) 0.43 L PT INR Sodium 131 L Carbon Dioxide 17 L BUN 30 H Creatinine 1.5 H Osmolality Calcium 7.8 L Total Protein 5.5 L Albumin 2.7 L Albumin/Globulin Ratio Urine Protein Urine Ketones Urine Occult Blood Urine Nitrate Ur Leukocyte Esterase Urine WBC Urine Bacteria Urine Mucus 10/02/22 10/02/22 10/02/22 16:42 06:25 06:25 WBC RBC Hgb Hct RDW Immature Gran % (Auto) Neut % (Auto) Lymph % (Auto) Lymph # (Auto) PT 15.6 H INR 1.2 H Sodium 127 L Carbon Dioxide 18 L BUN 29 H Creatinine 1.3 H Osmolality 275 L Calcium 7.7 L Total Protein 5.4 L Albumin 2.6 L Albumin/Globulin Ratio 0.9 L Urine Protein Urine Ketones Urine Occult Blood Urine Nitrate Ur Leukocyte Esterase Urine WBC Urine Bacteria Urine Mucus 10/02/22 10/02/22 06:25 03:47 WBC 3.6 L RBC 2.64 L Hgb 7.5 L Hct 22.9 L RDW 15.1 H Immature Gran % (Auto) 0.8 H Neut % (Auto) Lymph % (Auto) 11.7 L Lymph # (Auto) 0.42 L PT INR Sodium Carbon Dioxide BUN Creatinine Osmolality Calcium Total Protein Albumin Albumin/Globulin Ratio Urine Protein Trace A Urine Ketones Trace A Urine Occult Blood Trace-intact A Urine Nitrate Positive A Ur Leukocyte Esterase Large A Urine WBC > 182 H Urine Bacteria Mod A Urine Mucus Few A Meds: Medications Acetaminophen (Acetaminophen 325 Mg Tablet) 650 mg PO Q6HP PRN; Protocol PRN Reason: Per Pain Protocol/Fever > 101 Aspirin (Aspirin 81 Mg Tab.Chew) 81 mg CHEWED BID [facility] Last Admin: 10/03/22 21:41 Dose: 81 mg Ceftriaxone Sodium (Ceftriaxone 1 Gm Vial) 1 gm IV Q24H [facility]; Protocol Last Admin: 10/03/22 09:45 Dose: 1 gm Docusate Sodium (Docusate Sodium 100 Mg Capsule) 100 mg PO BID [facility] Last Admin: 10/03/22 21:41 Dose: 100 mg Hydromorphone HCl (Hydromorphone 1 Mg/Ml Syringe) 0 mg IV Q2HP PRN; Protocol PRN Reason: Per Pain Protocol Magnesium Hydroxide (Magnesium Hydroxide 30 Ml Oral.Susp) 30 ml PO BIDP PRN PRN Reason: Constipation Ondansetron HCl (Ondansetron 4 Mg/2 Ml Vial) 4 mg IV Q4HP PRN; Protocol PRN Reason: Nausea/Vomiting Oxycodone/Acetaminophen (Oxycodone/Apap 5/325mg Tablet) 1 tab PO Q4HP PRN; Protocol PRN Reason: Per Pain Protocol Senna (Sennosides 1 Tablet) 2 tab PO HS [facility] Last Admin: 10/03/22 21:41 Dose: 2 tab Sodium Chloride (Sodium Chloride 1 Gm Tablet) 2 gm PO BID [facility] Last Admin: 10/03/22 21:41 Dose: 2 gm Sodium Chloride (0.9 % Sodium Chloride 10 Ml Syringe) 10 ml IV Q8 [facility] Last Admin: 10/03/22 21:49 Dose: 10 ml Temazepam (Temazepam 15 Mg Capsule) 15 mg PO HSP PRN PRN Reason: Insomnia A/P Narrative A/P Narrative: A: *Left hip fracture: s/p ORIF (10/02) *Anemia, likely chronic with acute component from fracture: -responded appropriately to 2prbc(10/02) -back down to 7.9, no gross bleeding *Hyponatremia: Likely chronic unknown baseline suspect SIADH with acute component from volume depletion -decreased today *??KATHY vs likely CKD III (unknown baseline): 2/2 volume depletion *Metabolic acidosis: 2/2 above, improving *Volume depletion: improving *UTI (GNB): *h/o BPH with UR: pt straight caths 3-4x's day at home *Protein calorie malnutrition: Fat and muscle loss P: -Dr. Bai for orthopedic surgery -IVF's d/c -fluid restrict, salt tabs, f/u sodium and trend -follow-up renal function, uop, i/o -monitor H&H, transfuse for <7 or symptomatic -f/u acid-base -Pain control -Rocephin pending -Dietary consult -PT/OT -CM for placement -ppx: per Ortho ASA 81mg bid Plan of Treatment: rehab hip fx Time Spent With Patient Time: Total time spent is greater than 50% in coordination of care (as documented) at patient's floor/unit and/or counseling patient: Total time spent with greater than 50% in coordination of care (as documented) at patient's floor/unit and/or counseling patient:: 35 - 50 minutes
[2022-10-04] MEDS: 0.9 % SODIUM CHLORIDE 10 ML SYRINGE IV SCH ×2 (05:51→16:01)
[2022-10-04 06:51] LABS: Basophils # (Auto) 0.01 K/mcL (0.00-0.30); Basophils % (Auto) 0.4 % (0.0-2.0); Eosinophils # (Auto) 0.09 K/mcL (0.00-0.70); Hematocrit 23.7 % (40.1-51.0); Hemoglobin 7.9 g/dL (13.7-17.5); Lymphocytes % (Auto) 4.4 % (15.5-49.0); Mean Cell Volume 85.9 fL (80.0-100.0); Mean Corpuscular HGB Conc 33.3 g/dL (31.0-36.0); Monocytes # (Auto) 0.12 K/mcL (0.10-0.90); Monocytes % (Auto) 5.3 % (1.0-12.0); Neutrophils % (Auto) 85.5 % (38.0-78.0); Platelet Count 166 K/mcL (140-440); RBC 2.76 M/mcL (4.63-6.08); Red Cell Distribution Width 14.7 % (11.5-14.5); WBC 2.3 K/mcL (4.5-11.0)
[2022-10-04 07:05] LABS: Blood Urea Nitrogen 34 mg/dL (8-23); Calcium 7.7 mg/dL (8.6-10.4); Carbon Dioxide 20 mmol/L (22-30); Chloride 101 mmol/L (96-108); Glomerular Filtration Rate 40; Glucose 109 mg/dL (70-105)
[2022-10-04] MEDS: ASPIRIN 81 MG TAB.CHEW CHEWED SCH (08:48)
[2022-10-04] MEDS: SODIUM CHLORIDE 1 GM TABLET PO SCH (08:49)
[2022-10-04] MEDS: DOCUSATE SODIUM 100 MG CAPSULE PO SCH ×2 (08:52→08:55)
[2022-10-04] MEDS: cefTRIAXone 1 GM VIAL IV SCH (08:55)
--- NOTE | 2022-10-04 10:02 | Orthopedic Progress Note ---
SUBJECTIVE Subjective Patient information: Note initiated : 10/04/22 at 9:58 am Service Date, if different from initiated Date: [] Patient: Pola Ireland 89 y/o M admitted on 10/01/22 for Left Femur Fracure . Chief Complaint: [minimal pain and eating] Principal diagnosis: left femur fx Constitutional Vitals: Vital Signs Temp Pulse Resp BP Pulse Ox O2 Del Method O2 Flow Rate 98.6 F 95 H 20 111/61 97 2 10/04/22 07:40 10/04/22 07:40 10/04/22 07:40 10/04/22 07:40 10/04/22 07:40 10/04/22 07:40 10/03/22 03:00 Period Temp Pulse Resp BP Sys/Casanova Pulse Ox O2 Del Method O2 Flow Rate Last 24 Hr 97.9 F-98.6 F 88-95 16-20 93-118/53-62 92-100 Nasal Cannula- Room Air Intake and Output 10/03/22 10/04/22 10/04/22 19:59 03:59 11:59 Intake Total 120 480 Output Total 450 600 Balance -330 -120 Weight 135 lb 146 lb Intake & Output: Intake & Output 10/03/22 10/04/22 10/04/22 19:59 03:59 11:59 Intake Total 120 480 Output Total 450 600 Balance -330 -120 Weight 135 lb 146 lb Intake: Oral 120 480 Output: Urine Catheter Amount 450 600 Other: Meal Dinner Percent of Meal Consumed 50% Feeding Ability Assist with Tray Set Up Urine Appearance Cloudy Cloudy Sediment Uretheral (Pete) Sediment Urine Color Yellow Dark Yellow Urine Odor Normal Expanded Lower Extremity Exam Gait: Present antalgic OBJ DATA Labs CBC & Chem 7: 10/04/22 05:50 10/04/22 05:50 Labs: Abnormal Lab Results 10/04/22 10/04/22 10/03/22 05:50 05:50 05:52 WBC 2.3 L RBC 2.76 L Hgb 7.9 L Hct 23.7 L RDW 14.7 H Immature Gran % (Auto) Neut % (Auto) 85.5 H Lymph % (Auto) 4.4 L Lymph # (Auto) 0.10 L PT INR Sodium 126 L 131 L Carbon Dioxide 20 L 17 L Anion Gap 5.0 L BUN 34 H 30 H Creatinine 1.5 H 1.5 H Glucose 109 H Osmolality Calcium 7.7 L 7.8 L Total Protein 5.5 L Albumin 2.7 L Albumin/Globulin Ratio Urine Protein Urine Ketones Urine Occult Blood Urine Nitrate Ur Leukocyte Esterase Urine WBC Urine Bacteria Urine Mucus 10/03/22 10/03/22 10/02/22 05:52 05:51 16:42 WBC RBC 3.35 L Hgb 9.6 L Hct 28.6 L 29.5 L RDW 14.6 H Immature Gran % (Auto) 0.6 H Neut % (Auto) 81.2 H Lymph % (Auto) 8.6 L Lymph # (Auto) 0.43 L PT INR Sodium Carbon Dioxide Anion Gap BUN Creatinine Glucose Osmolality 275 L Calcium Total Protein Albumin Albumin/Globulin Ratio Urine Protein Urine Ketones Urine Occult Blood Urine Nitrate Ur Leukocyte Esterase Urine WBC Urine Bacteria Urine Mucus 10/02/22 10/02/22 10/02/22 06:25 06:25 06:25 WBC 3.6 L RBC 2.64 L Hgb 7.5 L Hct 22.9 L RDW 15.1 H Immature Gran % (Auto) 0.8 H Neut % (Auto) Lymph % (Auto) 11.7 L Lymph # (Auto) 0.42 L PT 15.6 H INR 1.2 H Sodium 127 L Carbon Dioxide 18 L Anion Gap BUN 29 H Creatinine 1.3 H Glucose Osmolality Calcium 7.7 L Total Protein 5.4 L Albumin 2.6 L Albumin/Globulin Ratio 0.9 L Urine Protein Urine Ketones Urine Occult Blood Urine Nitrate Ur Leukocyte Esterase Urine WBC Urine Bacteria Urine Mucus 10/02/22 03:47 WBC RBC Hgb Hct RDW Immature Gran % (Auto) Neut % (Auto) Lymph % (Auto) Lymph # (Auto) PT INR Sodium Carbon Dioxide Anion Gap BUN Creatinine Glucose Osmolality Calcium Total Protein Albumin Albumin/Globulin Ratio Urine Protein Trace A Urine Ketones Trace A Urine Occult Blood Trace-intact A Urine Nitrate Positive A Ur Leukocyte Esterase Large A Urine WBC > 182 H Urine Bacteria Mod A Urine Mucus Few A Meds: Medications Acetaminophen (Acetaminophen 325 Mg Tablet) 650 mg PO Q6HP PRN; Protocol PRN Reason: Per Pain Protocol/Fever > 101 Aspirin (Aspirin 81 Mg Tab.Chew) 81 mg CHEWED BID [facility] Last Admin: 10/04/22 08:48 Dose: 81 mg Ceftriaxone Sodium (Ceftriaxone 1 Gm Vial) 1 gm IV Q24H [facility]; Protocol Last Admin: 10/04/22 08:55 Dose: 1 gm Docusate Sodium (Docusate Sodium 100 Mg Capsule) 100 mg PO BID [facility] Last Admin: 10/04/22 08:55 Dose: Not Given Hydromorphone HCl (Hydromorphone 1 Mg/Ml Syringe) 0 mg IV Q2HP PRN; Protocol PRN Reason: Per Pain Protocol Magnesium Hydroxide (Magnesium Hydroxide 30 Ml Oral.Susp) 30 ml PO BIDP PRN PRN Reason: Constipation Ondansetron HCl (Ondansetron 4 Mg/2 Ml Vial) 4 mg IV Q4HP PRN; Protocol PRN Reason: Nausea/Vomiting Oxycodone/Acetaminophen (Oxycodone/Apap 5/325mg Tablet) 1 tab PO Q4HP PRN; Protocol PRN Reason: Per Pain Protocol Senna (Sennosides 1 Tablet) 2 tab PO HS [facility] Last Admin: 10/03/22 21:41 Dose: 2 tab Sodium Chloride (Sodium Chloride 1 Gm Tablet) 2 gm PO BID [facility] Last Admin: 10/04/22 08:49 Dose: 2 gm Sodium Chloride (0.9 % Sodium Chloride 10 Ml Syringe) 10 ml IV Q8 [facility] Last Admin: 10/04/22 05:51 Dose: 10 ml Temazepam (Temazepam 15 Mg Capsule) 15 mg PO HSP PRN PRN Reason: Insomnia A/P Assessment and plan (1) Closed left hip fracture: Assessment and plan: moving with walking a few feet needs dc to snf Plan: dc to snf Status: Acute Narrative Plan of Treatment: rehab hip fx Time Spent With Patient Time: Total time spent is greater than 50% in coordination of care (as documented) at patient's floor/unit and/or counseling patient:
[2022-10-04 14:07] LABS: POC Calcium, Ionized 1.19 (1.16-1.32); POC Creatinine 1.8 (0.6-1.2); POC Potassium 3.7 (3.3-5.1)
[2022-10-04] MEDS ORDERED: 0.9 % SODIUM CHLORIDE 500 ML IV ONE (14:45)
== END 2022-10-04 17:00 | disposition left against medical advice (07) | DRG 481 ==
LOC: MEDSUR 20:45
PROVIDERS: ADMIT Orthopaedic Surgery; ATTEND Orthopaedic Surgery